=== PATIENT | female | born 1935 | race Caucasian/White ===

== ENCOUNTER 2024-01-01 18:46 | Inpatient (IN) | payer BC ==
[2024-01-01 20:22] VITALS: BMI 39.0
[2024-01-01] MEDS ORDERED: Promethazine HCl 12.5 MG in Sodium Chloride 0.9% 50 ML IVPB PRN (22:43)
[2024-01-01] MEDS ORDERED: Morphine 2 MG/ML VIAL SLOW IVP PRN (22:43)
[2024-01-01] MEDS ORDERED: Dextrose 5% in Water 1,000 ML IV PRN (22:45)
[2024-01-01] MEDS ORDERED: Dextrose 50% Abboject 50 ML SYRINGE SLOW IVP PRN (22:45)
[2024-01-01] MEDS ORDERED: Glucagon 1 MG/ML KIT IM PRN (22:45)
[2024-01-01] MEDS ORDERED: Acetaminophen 325 MG TAB PO PRN (22:45)
[2024-01-01] MEDS ORDERED: Acetaminophen 650 MG Suppository PR PRN (22:45)
[2024-01-01] MEDS ORDERED: hydrALAZINE 20 MG/ML VIAL SLOW IVP PRN (22:53)
[2024-01-01] MEDS: Piperacillin/Tazobactam 3.375 GM in Sodium Chloride 0.9% 100 ML IVPB SCH (23:01)
[2024-01-01] MEDS: Sodium Chloride 0.9% 1,000 ML IV SCH (23:38)
[2024-01-01] MEDS: Potassium Chloride 20 MEQ in Premix 1 BAG IVPB SCH (23:39)
[2024-01-02] MEDS: Piperacillin/Tazobactam 3.375 GM in Sodium Chloride 0.9% 100 ML IVPB SCH (03:42)
[2024-01-02 04:20] LABS: #Basophils 0.03 10x3/uL (0.0-0.2); %Basophils 0.3 % (0.0-1.0); %Eosinophils 0.8 % (0.0-10.0); %Lymphocytes 43.1 % (21.0-51.0); %Monocytes 8.2 % (0.0-10.0); %Neutrophils 47.2 % (42.0-75.0); Hematocrit 34.5 % (36.0-47.0); Hemoglobin 11.7 g/dL (12.0-16.0); Mean Corpuscular HGB CONC 33.9 g/dL (32.0-36.0); Mean Corpuscular Hemoglobin 30.2 pg (27.0-31.0); Mean Corpuscular Volume 88.9 fL (78.0-98.0); Mean Platelet Volume 9.9 fL (7.4-10.4); Platelet Count 250 10x3/uL (130-400); RBC Distribution Width 12.5 % (11.5-14.5); Red Blood Cell (RBC) Count 3.88 mill/uL (4.20-5.40)
[2024-01-02 04:42] LABS: ALT (SGPT) 7 U/L (8-55); AST (SGOT) 11 U/L (5-34); Albumin 3.5 g/dL (3.4-4.8); Alkaline Phosphatase 50 U/L (40-110); Anion Gap 11 mmol/L (10-20); BUN (Urea Nitrogen) 7 mg/dL (9.8-20.1); Bilirubin, Total 0.8 mg/dL (0.2-1.2); Calc. Creatinine Clearance 52 mL/min (70-130); Calcium 8.3 mg/dL (7.8-10.44); Carbon Dioxide 21 mmol/L (23-31); Chloride 108 mmol/L (98-107); Estimated GFR 83; Globulin 2.1 g/dL (2.4-3.5); Glucose 105 mg/dL (83-110); Magnesium 1.7 mg/dL (1.6-2.6); Potassium 3.5 mmol/L (3.5-5.1); Protein, Total 5.6 g/dL (5.8-8.1); Sodium 136 mmol/L (136-145)
[2024-01-02] MEDS ORDERED: Escitalopram Oxalate 20 mg Tablet PO SCH (09:00)
[2024-01-02 11:43] VITALS: BP 151/83; TEMP 97.8
[2024-01-02] MEDS: Potassium Chloride 20 MEQ TAB PO SCH (15:19)
[2024-01-02] MEDS ORDERED: Piperacillin/Tazobactam 3.375 GM in Sodium Chloride 0.9% 100 ML IVPB SCH (20:00)
[2024-01-02] MEDS ORDERED: Atorvastatin Calcium 10 MG TAB PO SCH (21:00)
== END 2024-01-02 16:20 | disposition home or self-care (01) | DRG 391 ==
LOC: 2NO 19:39
PROVIDERS: ADMIT Internal Medicine; ATTEND Internal Medicine
DX: R19.7 Diarrhea, unspecified (principal); K55.059 Acute (reversible) ischemia of intestine, part and extent unspecified; B34.9 Viral infection, unspecified; E11.9 Type 2 diabetes mellitus without complications; I10 Essential (primary) hypertension; E78.5 Hyperlipidemia, unspecified; F32.A Depression, unspecified; Z90.49 Acquired absence of other specified parts of digestive tract; Z86.73 Personal history of transient ischemic attack (TIA), and cerebral infarction without residual deficits; Z90.710 Acquired absence of both cervix and uterus; E87.6 Hypokalemia; Z66 Do not resuscitate
CPT/HCPCS: 36415; 36416; 80053; 83735; 85025; J2543; J3480; J7030